=== PATIENT | female | born 1950 | race Caucasian/White ===

== ENCOUNTER 2018-12-02 17:13 | Emergency (ER) | payer MEDICARE, SELFPAY ==
[2018-12-02 17:14] VITALS: BP 133/102; PULSE 85; RESP 16; TEMP 36.7; O2SAT 96; BMI 33.7
--- NOTE | 2018-12-02 17:43 | CT_ITS ---
STUDY: CT BRAIN WITHOUT CONTRAST REASON FOR EXAM: Female, 68 years old. Dizziness and nausea RADIATION DOSAGE (If Supplied By Facility): CTDIvol = ( 44.99 ) mGy, DLP = ( 812.98 ) mGycm TECHNIQUE: Transaxial CT imaging of the brain was performed without administration of intravenous contrast material. Individualized dose optimization techniques were used for this CT. COMPARISON: No relevant priors. FINDINGS: Normal soft tissue structures. Normal calvarium. Normal size ventricles and extra-axial spaces for the patient's age. Normal white matter tracts of the cerebral hemispheres. Normal basal ganglia and thalami. Normal brainstem. Normal cerebellum. There is no intracranial hemorrhage. There are no findings of an acute ischemic infarction. Normal visualized paranasal sinuses. CT/Brain/Head without Contrast IMPRESSION: Normal unenhanced CT scan of the brain. Electronically Signed: Leo Lynn DO at 18:41 EDT Tel , Service support ,
--- NOTE | 2018-12-02 17:43 | EKG12_ITS ---
Test Reason : DIZZINESS Blood Pressure : / mmHG Vent. Rate : 074 BPM Atrial Rate : 074 BPM P-R Int : 194 ms QRS Dur : 086 ms QT Int : 402 ms P-R-T Axes : 036 007 063 degrees QTc Int : 446 ms Normal sinus rhythm Normal ECG Confirmed by JOHN PAUL MORENO, SPENSER ([id number]), international editorial producer SNEHAL DANIELLE ([id number]) on 12/03/2018 12:19:39 PM Referred By: KARISSA Confirmed By:SPENSER COKER MD
[2018-12-02] MEDS: 0.9% Normal Saline 1,000 ML 150 ML IV (17:58)
[2018-12-02] MEDS: Ondansetron 4 MG/2 ML Vial IV (17:58)
[2018-12-02 18:09] LABS: Absolute Lymphocyte Count 3.17 X10^3/ul (0.83-4.51); Absolute Neutrophil Count 5.2 X10^3/uL (2.0-7.7); Basophil# 0.01 X10^3/uL; Basophil% 0.1 % (0-1); Eosinophils% 1.1 % (0-5); Hematocrit 45.3 % (37-47); Hemoglobin 15.5 g/dl (12.0-15.0); Lymphocyte # 3.17 X10^3/ul (4.0); Lymphocyte % 34.2 % (19-41); Mean Corp Hgb Conc 34.2 g/gl (32-36); Mean Corpuscular Volume 87.8 fL (81-99); Mean Platelet Vol. 11.8 fl (6.2-12.0); Monocyte# 0.79 X10^3/uL; Monocyte% 8.5 % (0-10); Neutrophil # 5.18 X10^3/uL (2.7-7.7); Platelet Count 210 K/mm3 (150-450); RBC Distribution Width CV 13.4 % (11.6-14.6); Red Blood Count 5.16 M/mm3 (4.2-5.4); White Blood Count 9.3 K/mm3 (4.4-11.0)
[2018-12-02] MEDS: diazePAM 2 MG Tablet 4 MG PO (18:10)
[2018-12-02 18:22] LABS: POSITIVE COUNT NO; POSITIVE DIFFERENTIAL NO; POSITIVE MORPHOLOGY NO
[2018-12-02 18:23] LABS: Anion Gap 6 (5-15); BUN 16 mg/dL (7-18); BUN/Creat Ratio 18.7 RATIO (10-20); Calcium,Total 9.2 mg/dL (8.5-10.1); Chloride 102 mmol/L (98-107); Creatinine, Serum 0.86 mg/dL (0.55-1.02); EST Glomerular Filtration Rate 71 mL/min (>60); Est Glom Filt Rate - Afr Amer 85 mL/min (>60); Estimated Creatinine Clearance 55.57 ml/min; Glucose 118 mg/dL (74-106); Potassium 3.5 mmol/L (3.5-5.1); Sodium Level 140 mmol/L (136-145)
[2018-12-02 18:24] LABS: Bacteria 0 SEEN /hpf (None Seen); Mucous, Urine 0 SEEN /hpf (<or=2+); Red Blood Cells-Urine 0 SEEN /hpf (0-5)
[2018-12-02 18:26] LABS: Color, Urine Yellow (Yellow); Glucose, Dipstick Normal (Normal); Ketone-Dipstick Negative (Negative); Leukocyte Esterase-Dipstick 25 /ul (Negative); Nitrite-Dipstick Negative (Negative); Occult Blood-Urine Negative /ul (Negative); Protein-Dipstick Negative (Negative); Urine Bilirubin Dipstick Negative (Negative); Urine Clarity Sl. Cloudy (Clear); Urine Urobilinogen Normal (Normal)
[2018-12-02 18:33] VITALS: BP 133/78; BP 137/83; BP 150/85; PULSE 75; PULSE 76
[2018-12-02 18:40] LABS: Amorphous Sediment 3+ PHOS; Squamous Epithelial Cells - UA 0-5 SEEN /hpf (5-10); White Blood Cells 0-5 SEEN /hpf (0-5)
--- NOTE | 2018-12-02 19:03 | ED.VISSUMM ---
- ER Visit Summary Date of Service: 12/02/18 Chief Complaint: [Dizziness] History of Present Illness: The patient is a 68 F [presents to the emergency department with dizziness that started over a month ago while she was still in [place]. Patient is here visiting. Patient describes intermittent episodes of room spinning type sensation that is worse with turning the head certain ways. Patient at times feels nauseated with it and gets diaphoretic. Patient feels like she is off balance and listing to one side at times. She is never had symptoms like this before. She denies any falls or head injuries. She denies any focal weakness. She denies difficult he with speech or vision changes. She denies any chest pain or shortness of breath. Patient has history of hypertension and high cholesterol. Patient denies any ringing in the ears or hearing loss.] Physical Examination: [HEENT-PERRLA, EOMI. Cranial nerves II through XII grossly intact. TMs clear. Mucous membranes moist. No adenopathy. Cardiovascular-regular rate and rhythm without murmur or ectopy Lungs-clear to auscultation, chest wall stable without crepitus or subcu emphysema Abdomen-normoactive bowel sounds, soft, nontender, no rebound or rigidity, no peritoneal signs. Neuro exam-the nose and heel david testing within normal limits, negative Romberg, negative for drift, fundi benign. Hallpike maneuver performed was negative for nystagmus. Extremities-intact ?4, normal range of motion, normal pulses, atraumatic] Test Results: [EKG obtained on arrival shows sinus rhythm with a ventricular rate of 74 bpm with no acute segment changes. CBC with differential was normal. Chemistries normal. Urinalysis normal. Troponin is less than 0.015. CT scan of the brain without contrast was normal.] Emergency Department Course and Treatment: [He was medicated with Valium and Zofran and she felt significantly improved.] Treatment Plan: [Will be referred to Dr. Patel Schwartz who is on for ENT for follow-up. Patient was given a prescription for Zofran and Valium.] She is advised not to drive if feeling dizzy or taking Valium. Disposition: [Discharged home stable condition.] Impression: [Benign positional vertigo] This note was generated with [employer] software. It may contain incorrect words, spelling, and punctuation that were not noted in review of the chart prior to signing ED Disposition - Plan for ED Patient: Referrals: [facility] Doctor,Out of [Primary Care Provider] -
--- NOTE | 2018-12-02 19:06 | DCINST.ED_ITS ---
ED Disposition - Plan for ED Patient: Instructions: Benign Positional Vertigo Prescriptions: Diazepam [Valium] 2 mg PO TID PRN PRN #14 tab PRN Reason: Vertigo Prescription Printed Ondansetron [Zofran Odt] 4 mg PO Q8H PRN PRN #10 tab PRN Reason: Nausea Prescription Printed Referrals: [facility] Doctor,Out of [Primary Care Provider] - Patel Schwartz MD [STAFF PHYSICIAN] - 3-5 Days
[2018-12-02 19:20] VITALS: BP 145/88; PULSE 66; RESP 16; O2SAT 97
== END 2018-12-02 19:21 | disposition home or self-care (01) ==
PROVIDERS: Emergency Provider Emergency Medicine
DX: H81.10 Benign paroxysmal vertigo, unspecified ear (principal); E78.00 Pure hypercholesterolemia, unspecified; I10 Essential (primary) hypertension; Z79.899 Other long term (current) drug therapy
CPT/HCPCS: 70450; 80048; 81001; 84484; 85025; 93005; 96361; 96374; 99285; J7030; A4216; J2405